=== PATIENT | female | born 1995 | race Caucasian/White ===

== ENCOUNTER → 2020-03-20 | Outpatient (REF) | payer OTHER ==
[2020-03-20 17:23] LABS: HEMATOCRIT 34.2 % (36.0-47.0); HEMOGLOBIN 11.3 g/dl (12.0-15.5); MEAN CORPUSCULAR HEMOGLOBIN 32.2 pg (27.0-33.0); MEAN CORPUSCULAR VOLUME 97.4 fl (80.0-96.0); PLATELET COUNT, AUTOMATED 201 10^3/uL (150-450); RED BLOOD COUNT 3.51 10^6/uL (4.00-5.40); WHITE BLOOD COUNT 11.5 10^3/uL (4.0-10.0)
== END ==
LOC: M LAB REF 16:59
PROVIDERS: ATTEND Obstetrics & Gynecology
DX: O36.80X0 Pregnancy with inconclusive fetal viability, not applicable or unspecified (principal)

== ENCOUNTER → 2020-03-26 | Outpatient (CLI) | payer OTHER ==
--- NOTE | 2020-03-26 12:05 | REP ---
Clinical: Anatomical evaluation. Comparison: None . Findings: Examination demonstrates a single live intrauterine in cephalic presentation. motion is identified by technologist. Placenta is noted posterior and grade I without evidence for placenta previa or abruption. Amniotic fluid volume is normal. Cervix measures 3.1 cm in length and appears closed. No evidence for nuchal cord. Gestational age by LMP 21 weeks 6 days with ZACK 07/31/2020 . Gestational age by current measurements 21 weeks 3 days with ZACK 08/03/2020 . BPD 5.2 cm 21 weeks 5 days HC 19.2 cm 21 weeks 3 days AC 16.8 cm 21 weeks 6 days FL 3.7 cm 21 weeks 5 days HL 3.4 cm of 21 weeks 4 days HC/AC ratio 1.14 Estimated weight 445 grams ( 58th percentile). Anatomical assessment demonstrates normal structures including cranium, choroid plexus, cavum, cerebellum/posterior fossa, facial features, lungs, four-chamber heart/ventricular outflow tracts, diaphragm, stomach, cord insertion/three-vessel cord, kidneys/bladder, spine, and extremities. Impression: Single live intrauterine in cephalic presentation demonstrating appropriate estimated weight and growth. Anatomical assessment is complete and normal. No gross abnormalities are identified.
== END ==
LOC: EDUNIT# 08:30 → M WHC 08:34
PROVIDERS: ATTEND Obstetrics & Gynecology
DX: O36.80X0 Pregnancy with inconclusive fetal viability, not applicable or unspecified (principal); Z3A.21 21 weeks gestation of pregnancy

== ENCOUNTER → 2020-05-15 | Outpatient (CLI) | payer OTHER ==
[2020-05-15 13:31] LABS: HEMATOCRIT 34.5 % (36.0-47.0); HEMOGLOBIN 11.5 g/dl (12.0-15.5); MEAN CORPUSCULAR HEMOGLOBIN 33.1 pg (27.0-33.0); MEAN CORPUSCULAR HGB CONC 33.3 g/dl (32.0-36.5); MEAN CORPUSCULAR VOLUME 99.4 fl (80.0-96.0); PLATELET COUNT, AUTOMATED 183 10^3/uL (150-450); RED BLOOD COUNT 3.47 10^6/uL (4.00-5.40)
[2020-06-23 09:28] LABS: WHITE BLOOD COUNT 10.9 10^3/uL (4.0-10.0)
== END ==
LOC: M LAB 11:45
PROVIDERS: ATTEND Obstetrics & Gynecology
DX: Z34.03 Encounter for supervision of normal first pregnancy, third trimester (principal); Z3A.00 Weeks of gestation of pregnancy not specified

== ENCOUNTER 2020-07-29 00:37 | Inpatient (IN) | payer OTHER ==
[~2020-07-29] VITALS: Ht 160 cm; Wt 80.9 kg
[2020-07-29] VITALS (42 sets, daily range): BP systolic 83–142; BP diastolic 52–81
[2020-07-29] MEDS ORDERED: PROMETHAZINE INJ 25 MG/ML VIAL (J2550) IV ONE (02:15)
[2020-07-29] MEDS ORDERED: BUTORPHANOL 2 MG/ML INJ (J0595) IV ONE (02:15)
--- NOTE | 2020-07-29 02:20 | HPEPDOC ---
Obstetrical History & Physical General Date of Admission Jul 29, 2020 at 02:10 History of Present Illness 24 yo G1 at 39 5/7 weeks by LMP c/w 7 week ultrasound (EDC=08/03/2020) presents with regular contractions for the past 3-4 hours. No LOF. No vaginal bleeding. 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 BREAST: . ABDOMEN: Gravid and non-tender to touch. FETUS: Is vertex (VTX) by sterile vaginal examination (SVE), fetus is vertex (VTX) by Christiano. HEART RATE: Regular rate and rhythm. LUNGS: Clear to auscultation (CTA). EXTREMITIES: No edema. No clonus. Deep tendon reflexes (DTRs) + . Pertinent Laboratoy Data Blood Type: A+ Group B Streptococcus: Negative Vaginal Examination Dilation: 1cm Effacement: 70% Station: -2 Cervical Consistency: Soft Cervical Position: Posterior Assessment Variability: Moderate Accelerations: Positive Decelerations: None Tocometer Contractions: Yes Frequency: regular, every 1-3 min. Assessment/Plan Assessment Pt is a 24-year-old (G)1 para (P)0 at 39+5 weeks by LMP c/w 7-week ultrasound presents to Labor and Delivery in early labor Plan Admit and orient. Compensation And Benefits Analyst and consent. Group B Streptococcus (GBS) negative. Labs and intravenous (IV) per unit protocol. Anticipate [normal spontaneous delivery ()]. C-S as appropriate. KATLYN CARRILLO MD Jul 29, 2020 02:20
[2020-07-29 02:32] LABS: HEMATOCRIT 39.9 % (36.0-47.0); HEMOGLOBIN 13.5 g/dl (12.0-15.5); MEAN CORPUSCULAR HGB CONC 33.8 g/dl (32.0-36.5); MEAN CORPUSCULAR VOLUME 94.5 fl (80.0-96.0); PLATELET COUNT, AUTOMATED 227 10^3/uL (150-450); RED BLOOD COUNT 4.22 10^6/uL (4.00-5.40); WHITE BLOOD COUNT 16.3 10^3/uL (4.0-10.0)
[2020-07-29] MEDS ORDERED: FENTANYL 2MCG/ML ROPIVACAINE 0.2% IN 0.9% NACL 100ML IVBAG As Ordered ONE (06:57)
[2020-07-29] MEDS ORDERED: LACTATED RINGER'S 1000 ML IV PRN (08:00)
[2020-07-29] MEDS ORDERED: NALOXONE INJ 0.4MG/1ML VIAL (J2310 PER 1MG) IV PRN (08:00)
[2020-07-29] MEDS ORDERED: FENTANYL/ROPIVACAINE/NACL BAG 100 ML EPIDURAL SCH (08:00)
[2020-07-29] MEDS ORDERED: OXYTOCIN 30 UNITS IN 0.9% NaCl 500ML IV BAG (J2590) As Ordered ONE (08:00)
[2020-07-29] MEDS ORDERED: REFRIGERATOR IV KEYS XX PRN (08:00)
[2020-07-29] MEDS ORDERED: ONDANSETRON 4MG/2ML VIAL IV PRN (08:00)
[2020-07-29] MEDS ORDERED: EPIDURAL COMMENT XX SCH (08:00)
[2020-07-29] MEDS ORDERED: diphenhydrAMINE 50MG/ML VIAL (J1200) IV PRN (08:00)
[2020-07-29] MEDS ORDERED: EPIDURAL/PCA KEYS XX PRN (08:00)
[2020-07-29] MEDS: ePHEDrine SULFATE 25 MG/5 ML(5MG/ML) SYRINGE IV PRN ×2 (09:01→09:30)
[2020-07-29] MEDS ORDERED: OXYTOCIN DRIP 30 UNITS in IV 1 EA IV SCH ×2 (13:30→17:16)
[2020-07-29] MEDS ORDERED: RHOGAM 300 MCG (1500 IU) INJ (J2790) IM SCH (17:30)
[2020-07-29] MEDS ORDERED: IBUPROFEN 600MG TAB PO PRN (17:30)
[2020-07-29] MEDS ORDERED: METHYLERGONOVINE MALEATE 0.2 MG TAB PO PRN (17:30)
[2020-07-29] MEDS ORDERED: MEASLES,MUMPS,RUBELLA VACCINE INJ (MMR-II) (90707) SC SCH (17:30)
[2020-07-29] MEDS ORDERED: DIBUCAINE 1% OINTMENT 30GM TOP PRN (17:30)
[2020-07-29] MEDS ORDERED: ACETAMINOPHEN TAB 650MG DOSE (2X325MG) PO PRN (17:30)
[2020-07-29] MEDS ORDERED: DOCUSATE SODIUM 100 MG CAP PO PRN (17:30)
[2020-07-29 17:40] LABS: CORD GAS ABE A -5.7; CORD GAS HCO3 A 21.7 MEQ/L; CORD GAS HCO3 V 20.4 MEQ/L; CORD GAS O2 SAT A 39.2 %; CORD GAS O2 SAT V 68.4 %; CORD GAS PCO2 A 49.7 mmHg; CORD GAS PCO2 V 39.4 mmHg; CORD GAS PH A 7.258 UNITS; CORD GAS PH V 7.332 UNITS; CORD GAS PO2 A 19.1 mmHg; CORD GAS PO2 V 28.2 mmHg; CORD GAS SBC A 18.5 MEQ/L; CORD GAS SBC V 19.7 MEQ/L; CORD GAS TCO2 A 23.2 MEQ/L; CORD GAS TCO2 V 21.6 MEQ/L
[2020-07-29] MEDS: IBUPROFEN 800 MG TAB PO PRN (23:34)
[2020-07-30] MEDS: ACETAMINOPHEN 500 MG TAB PO PRN ×3 (02:40→21:21)
[2020-07-30 05:41] VITALS: BP 128/78
[2020-07-30] MEDS: IBUPROFEN 800 MG TAB PO PRN ×2 (08:01→15:41)
[2020-07-30] MEDS: PRENATAL VITAMINS CHEWABLE TABLET PO SCH (08:01)
[2020-07-30] MEDS ORDERED: BOOSTRIX/ADACEL VACCINE (DIPHTH/PERTUSS/ACELL/TETANUS) 0.5ML SYR IM ONE (09:00)
--- NOTE | 2020-07-30 13:24 | DN ---
DATE: 07/29/2020 Khadijah is a 24-year-old female, 1, para 0, who was admitted at 39+ weeks gestation, in labor. She progressed to fully dilated after artifical rupture of membranes and Pitocin augmentation. She then pushed and delivered a live male infant in right occiput anterior position. scores 8 and 9, weight 7 pounds 7 ounces. Placenta delivered spontaneously intact. A 3-vessel cord. Perineum, vagina, cervix inspected. Bilateral periurethral lacerations noted, which were repaired using 3-0 chromic. Estimated blood loss 300 mL. Both mother and baby in stable condition. MTDD
[2020-07-30 18:00] VITALS: BP 121/85
[2020-07-31] MEDS: IBUPROFEN 800 MG TAB PO PRN ×2 (00:12→08:18)
[2020-07-31] MEDS: ACETAMINOPHEN 500 MG TAB PO PRN (04:39)
[2020-07-31 06:01] VITALS: BP 119/77
[2020-07-31] MEDS: PRENATAL VITAMINS CHEWABLE TABLET PO SCH (08:18)
== END 2020-07-31 13:15 | disposition home or self-care (01) | DRG 807 ==
LOC: M LDO 00:37 → M LDI 02:10 → M OBS 19:40
PROVIDERS: ADMIT Specialist; ATTEND Obstetrics & Gynecology
PROC: 10E0XZZ Delivery of Products of Conception, External Approach (ICD-10-PCS; principal; 2020-07-29)
PROC: 10907ZC Drainage of Amniotic Fluid, Therapeutic from Products of Conception, Via Natural or Artificial Opening (ICD-10-PCS; 2020-07-29)
PROC: 0UQMXZZ Repair Vulva, External Approach (ICD-10-PCS; 2020-07-29)
DX: O71.82 Other specified trauma to perineum and vulva (principal); Z37.0 Single live birth; Z3A.39 39 weeks gestation of pregnancy

== ENCOUNTER → 2021-07-08 | Outpatient (REF) | payer OTHER ==
[2021-07-08 13:35] LABS: HEMATOCRIT 37.4 % (36.0-47.0); HEMOGLOBIN 12.5 g/dl (12.0-15.5); MEAN CORPUSCULAR HEMOGLOBIN 31.2 pg (27.0-33.0); MEAN CORPUSCULAR HGB CONC 33.4 g/dl (32.0-36.5); MEAN CORPUSCULAR VOLUME 93.3 fl (80.0-96.0); PLATELET COUNT, AUTOMATED 234 10^3/uL (150-450); RED BLOOD COUNT 4.01 10^6/uL (4.00-5.40)
[2021-07-08 15:14] LABS: HCG, SERUM QUANTITATIVE 79989 MIU/ML; HEPATITIS C VIRUS ABY INDEX < 0.0 INDEX (<0.8); HIV 1&2 SCREEN CENTAUR NEGATIVE (NEGATIVE)
== END ==
LOC: M LAB REF 12:40
PROVIDERS: ATTEND Obstetrics & Gynecology
DX: Z32.01 Encounter for pregnancy test, result positive (principal)

== ENCOUNTER → 2021-12-02 | Outpatient (CLI) | payer OTHER ==
[2021-12-02 10:56] LABS: HEMATOCRIT 34.2 % (36.0-47.0); HEMOGLOBIN 11.5 g/dl (12.0-15.5); MEAN CORPUSCULAR HEMOGLOBIN 32.4 pg (27.0-33.0); MEAN CORPUSCULAR HGB CONC 33.6 g/dl (32.0-36.5); MEAN CORPUSCULAR VOLUME 96.3 fl (80.0-96.0); PLATELET COUNT, AUTOMATED 220 10^3/uL (150-450); RED BLOOD COUNT 3.55 10^6/uL (4.00-5.40); WHITE BLOOD COUNT 10.7 10^3/uL (4.0-10.0)
== END ==
LOC: M LAB 11-27 10:06
PROVIDERS: ATTEND Obstetrics & Gynecology
DX: Z34.82 Encounter for supervision of other normal pregnancy, second trimester (principal)

== ENCOUNTER 2022-02-20 12:12 | Inpatient (IN) | payer OTHER ==
[~2022-02-20] VITALS: Ht 160 cm; Wt 81.6 kg
[2022-02-20] VITALS (13 sets, daily range): BP systolic 117–163; BP diastolic 73–102
[2022-02-20] MEDS: PRENATAL VITAMINS CHEWABLE TABLET PO SCH (09:00)
[2022-02-20] MEDS ORDERED: OXYTOCIN 30 UNITS IN 0.9% NaCl 500ML IV BAG (J2590) As Ordered ONE (12:23)
[2022-02-20] MEDS ORDERED: LR 1,000 ML IV SCH (12:40)
[2022-02-20] MEDS ORDERED: ACETAMINOPHEN TAB 650MG DOSE (2X325MG) PO PRN ×4 (12:50→13:05)
[2022-02-20] MEDS ORDERED: METHYLERGONOVINE MALEATE 0.2 MG TAB PO PRN ×4 (12:50→13:05)
[2022-02-20] MEDS ORDERED: DOCUSATE SODIUM 100MG CAPSULE PO PRN ×4 (12:50→13:05)
[2022-02-20] MEDS ORDERED: RHOGAM 300 MCG (1500 IU) INJ (J2790) IM SCH ×4 (12:50→13:05)
[2022-02-20] MEDS ORDERED: IBUPROFEN 600MG TAB PO PRN ×4 (12:50→13:05)
[2022-02-20] MEDS ORDERED: ACETAMINOPHEN 500 MG TAB PO PRN ×3 (12:50→13:05)
[2022-02-20] MEDS ORDERED: MEASLES,MUMPS,RUBELLA VACCINE INJ (MMR-II) (90707) SC SCH ×4 (12:50→13:05)
[2022-02-20] MEDS ORDERED: IBUPROFEN 800 MG TAB PO PRN ×3 (12:50→13:05)
[2022-02-20] MEDS ORDERED: PRENTAB9 PO (12:54)
[2022-02-20] MEDS ORDERED: HOME MED LIST COMPLETE! XX SCH (12:55)
[2022-02-20] MEDS ORDERED: OXYTOCIN INJ 10 UNITS/ML VIAL (J2590) IM ONE (13:00)
[2022-02-20 13:02] LABS: CORD GAS ABE A -3.7; CORD GAS ABE V -2.9; CORD GAS HCO3 A 22.6 MEQ/L; CORD GAS HCO3 V 20.2 MEQ/L; CORD GAS O2 SAT A 67.1 %; CORD GAS O2 SAT V 98.8 %; CORD GAS PCO2 A 45.7 mmHg; CORD GAS PCO2 V 30.5 mmHg; CORD GAS PH A 7.312 UNITS; CORD GAS PH V 7.439 UNITS; CORD GAS PO2 A 27.6 mmHg; CORD GAS PO2 V 84.2 mmHg; CORD GAS SBC A 20.8 MEQ/L; CORD GAS SBC V 22.1 MEQ/L; CORD GAS TCO2 V 21.1 MEQ/L
[2022-02-20 13:08] LABS: HEMATOCRIT 37.5 % (36.0-47.0); HEMOGLOBIN 12.8 g/dl (12.0-15.5); MEAN CORPUSCULAR HEMOGLOBIN 32.7 pg (27.0-33.0); MEAN CORPUSCULAR HGB CONC 34.1 g/dl (32.0-36.5); MEAN CORPUSCULAR VOLUME 95.7 fl (80.0-96.0); PLATELET COUNT, AUTOMATED 203 10^3/uL (150-450); RED BLOOD COUNT 3.92 10^6/uL (4.00-5.40); WHITE BLOOD COUNT 11.7 10^3/uL (4.0-10.0)
[2022-02-20] MEDS ORDERED: ONDANSETRON 4MG TAB PO ONE (14:05)
[2022-02-20] MEDS: ONDANSETRON 4MG TAB PO PRN (19:33)
[2022-02-20] MEDS: ACETAMINOPHEN 500 MG TAB PO PRN (20:07)
[2022-02-21] MEDS: IBUPROFEN 800 MG TAB PO PRN ×3 (00:05→20:04)
[2022-02-21] MEDS: ONDANSETRON 4MG TAB PO PRN ×3 (02:11→20:03)
[2022-02-21] MEDS: ACETAMINOPHEN 500 MG TAB PO PRN ×2 (02:11→09:00)
[2022-02-21 05:50] VITALS: BP 107/73
[2022-02-21] MEDS: PRENATAL VITAMINS CHEWABLE TABLET PO SCH (08:58)
[2022-02-21] MEDS ORDERED: INFLUENZA QUADRIVALENT PF VACCINE 0.5ML SYRINGE IM ONE (09:00)
[2022-02-21] MEDS ORDERED: BOOSTRIX/ADACEL VACCINE (DIPHTH/PERTUSS/ACELL/TETANUS) 0.5ML SYR IM ONE (09:00)
[2022-02-21] MEDS ORDERED: PRENATAL VITAMINS CHEWABLE TABLET PO SCH ×5 (09:00)
[2022-02-21] MEDS ORDERED: DIBUCAINE 1% OINTMENT 30GM TOP PRN (16:45)
[2022-02-21 18:00] VITALS: BP 120/81
[2022-02-22] MEDS: ACETAMINOPHEN 500 MG TAB PO PRN (05:04)
[2022-02-22 05:51] VITALS: BP 125/82
[2022-02-22] MEDS: IBUPROFEN 800 MG TAB PO PRN (08:33)
[2022-02-22] MEDS: PRENATAL VITAMINS CHEWABLE TABLET PO SCH (08:33)
== END 2022-02-22 16:11 | disposition home or self-care (01) | DRG 807 ==
LOC: M LDO 12:12 → M LDI 12:21 → M OBS 18:30
PROVIDERS: ADMIT Obstetrics & Gynecology; ATTEND Obstetrics & Gynecology
PROC: 10E0XZZ Delivery of Products of Conception, External Approach (ICD-10-PCS; principal; 2022-02-20)
DX: O69.81X0 Labor and delivery complicated by cord around neck, without compression, not applicable or unspecified (principal); Z37.0 Single live birth; Z3A.39 39 weeks gestation of pregnancy